=== PATIENT | female | born 1955 | race Caucasian/White ===

== ENCOUNTER 2017-07-09 11:30 | Emergency (ER) | payer BC | END 2017-07-09 13:07 | disposition home or self-care (01) | LOC: ERS 11:30 | DX: K11.20 Sialoadenitis, unspecified (principal); E78.5 Hyperlipidemia, unspecified; M06.9 Rheumatoid arthritis, unspecified; G40.909 Epilepsy, unspecified, not intractable, without status epilepticus; M32.9 Systemic lupus erythematosus, unspecified; Z79.899 Other long term (current) drug therapy | CPT/HCPCS: 99283 ==

== ENCOUNTER 2017-07-12 14:20 | Emergency (ER) | payer BC ==
[2017-07-12] MEDS ORDERED: Ondansetron ODT 4 MG TAB ONE (14:27)
== END 2017-07-12 15:30 | disposition left against medical advice (07) ==
LOC: ERS 14:20
DX: Z53.21 Procedure and treatment not carried out due to patient leaving prior to being seen by health care provider (principal)
CPT/HCPCS: 93005; Q0162

== ENCOUNTER 2017-12-08 14:48 | Outpatient (CLI) | payer BC ==
[~2017-12-08 14:48] MED LIST: ISOVUE-370 76%-LOCM 1 ML ONE
--- NOTE | 2017-12-08 16:18 | CT ---
HEAD CT WITH AND WITHOUT CONTRAST: 12/08/17 HISTORY: Memory loss. Evaluate for intracranial metastases. Stage IV breast cancer. COMPARISON: None. TECHNIQUE: Pre and postcontrast head CT is performed in the axial plane. FINDINGS: Noncontrast head CT: No parenchymal hemorrhage. No extra-axial hematoma. No midline shift. Basilar cisterns are patent. Br ain volume, age appropriate. Cortical carney-white matter differentiation is preserved. Ventricles and sulci are patent and symmetric. Note is made of a partially empty sella. No pathologic enhancement of the brain parenchyma. Adequate aeration of the sinuses and mastoid air cells. Calvarium is intact. IMPRESSION: No pathologic enhancement of the brain parenchyma. No CT evidence of intracranial metastases. POS: BINTA
== END 2017-12-08 14:49 | disposition home or self-care (01) ==
LOC: CT 14:48
PROVIDERS: ATTEND Internal Medicine Medical Oncology
DX: C50.112 Malignant neoplasm of central portion of left female breast (principal); C79.51 Secondary malignant neoplasm of bone
CPT/HCPCS: 70470; 82565

== ENCOUNTER 2018-11-28 10:17 | Outpatient (CLI) | payer BC ==
--- NOTE | 2018-11-28 11:22 | MMO ---
Bilateral MAMMO Bilat Diag [facility]TYESHA. CLINICAL HISTORY: Patient is 63 years old and is seen for diagnostic exam and lump or thickening in the left breast. The patient has the following family history of breast cancer: maternal aunt. The patient has a history of metastatic left breast carcinoma at age 61; Core Biopsy procedure revealed invasive ductal left breast carcinoma in December, and Core Biopsy procedure revealed invasive ductal left breast carcinoma in December,. The patient has a history of left Ultrasound Guided Core Biopsy in November, - malignant and left Ultrasound Guided Core Biopsy at age 61 - malignant. VIEWS: The views performed were: bilateral craniocaudal with tomosynthesis; bilateral mediolateral oblique with tomosynthesis; and bilateral mediolateral with tomosynthesis. FILMS COMPARED: The present examination has been compared to prior imaging studies performed at [facility] on 12/10/2015 and 01/01/2016, and at [facility] on 11/04/2013. MAMMOGRAM FINDINGS: There are scattered fibroglandular densities. Finding 1: There are two new biopsy clips seen in the central region of the left breast. Finding 2: There is an area of architectural distortion seen in the central region of the left breast. In the right breast, there are no suspicious masses, calcifications or areas of architectural distortion. IMPRESSION: FINDING 1: NEW BIOPSY CLIPS IN THE LEFT BREAST ARE CONFIRMED UTILIZING POST PROCEDURE MAMMOGRAM. FINDING 2: AREA OF ARCHITECTURAL DISTORTION IN THE LEFT BREAST IS A KNOWN MALIGNANCY. THE RESULTS OF THIS EXAM WERE SENT TO THE PATIENT. MAMMOGRAPHY NOTE: 1. A negative mammogram report should not delay a biopsy if a dominant of clinically suspicious mass is present. 2. Approximately 10% to 15% of breast cancers are not detected by mammography. 3. Adenosis and dense breasts may obscure an underlying neoplasm. Reported by: MARIA M TOMLIN MD Electonically Signed: [id number]
== END 2018-11-28 10:18 | disposition home or self-care (01) ==
LOC: BICMAMMO 10:17
PROVIDERS: ATTEND Specialist
DX: N63.20 Unspecified lump in the left breast, unspecified quadrant (principal); Z80.3 Family history of malignant neoplasm of breast; Z85.3 Personal history of malignant neoplasm of breast; Z98.890 Other specified postprocedural states
CPT/HCPCS: 77066; G0279

== ENCOUNTER 2018-12-07 09:29 | Outpatient (CLI) | payer BC ==
[2018-12-07] MEDS ORDERED: Iopamidol 370 76% 100 ML VIAL ONE (11:04)
--- NOTE | 2018-12-07 11:32 | CT ---
CT OF THE CHEST, ABDOMEN AND PELVIS WITH IV CONTRAST INDICATION: History of metastatic breast disease COMPARISON: CT of the chest, abdomen and pelvis dated August 04, 2016 FINDINGS: CHEST: Lungs:No suspicious pulmonary nodules. Heart and great vessels:Right subclavian chest wall port. Pleural space: No pneumothorax or effusion. Additional findings: There is a new 2.5 cm mass within the inner aspect the left breast with associa kiran biopsy clip. There are 2 small ossific clips within the central left breast. There are stable nonpathologically enlarged lymph nodes within the left and right axilla. ABDOMEN: Liver:Stable hepatic cysts and fatty liver Spleen:Normal appearing. Pancreas:Normal appearing. Adrenal Glands:Normal appearing. Kidneys:Normal appearing. Aorta:Normal appearing. Additional findings: Cholecystectomy Pelvis: Bowel:Normal appearing. Bladder:Decompressed Reproductive structures:Surgically absent Rectum and perirectal soft tissues:Normal appearing. Additional findings: No free fluid or free air. Osseous structures: Stable scattered osteoblastic metastatic disease. No pathologic fractures identified. There is scattered degenerative and osteoarthritic changes. IMPRESSION: 1. New left breast mass with biopsy clip. Recommend correlation with patient's pathological cells. Fi ndings are suspicious for recurrent left breast cancer. 2. Stable osteoblastic metastatic disease. 3. No evidence of intrathoracic or intra-abdominal metastatic disease.
--- NOTE | 2018-12-07 15:43 | NM ---
WHOLE BODY BONE SCAN: 12/07/18 HISTORY: Malignant neoplasm of central portion of the left female breast. RADIOPHARMACEUTICAL: 30 millicuries technetium 99m-MDP injected intravenously. COMPARISON: Bone scan dated 10/24/16. CORRELATION: CT chest, abdomen and pelvis of today. FINDINGS: There is decreased intensity of uptake in the regions of previously noted abnormalities in the sternu m, ribs, right lesser trochanter and inferior aspect of the left SI region. Increased uptake in the shoulders, elbows, wrist, hands, knees, ankles and feet, consistent with dege nerative changes are redemonstrated. Tracer excretion through the kidneys is within normal limits. IMPRESSION: Interval improvement in the osseous metastatic disease since 11/24/16. POS: BINTA
== END 2018-12-07 09:30 | disposition home or self-care (01) ==
LOC: CT 09:29
PROVIDERS: ATTEND Internal Medicine Hematology & Oncology
DX: C50.112 Malignant neoplasm of central portion of left female breast (principal); C79.51 Secondary malignant neoplasm of bone; N63.20 Unspecified lump in the left breast, unspecified quadrant
CPT/HCPCS: 71260; 74177; 78306; A9503; Q9967

== ENCOUNTER 2018-12-28 13:48 | Outpatient (CLI) | payer BC ==
[2018-12-28 15:42] LABS: #Eosinphils 0.1 thou/uL (0.0-0.7); #Lymphocytes 1.5 thou/uL (1.20-3.40); #Monocytes 0.5 thou/uL (0.11-0.59); #Neutrophils 2.9 thou/uL (1.40-6.50); %Basophils 0.5 % (0.0-1.0); %Eosinophils 2.2 % (0.0-10.0); %Lymphocytes 29.9 % (21.0-51.0); %Monocytes 10.2 % (0.0-10.0); %Neutrophils 57.2 % (42.0-75.0); Hemoglobin 12.8 g/dL (12.0-16.0); Mean Corpuscular HGB CONC 34.3 g/dL (32.0-36.0); Mean Corpuscular Volume 84.6 fL (78.0-98.0); Mean Platelet Volume 7.9 fL (7.4-10.4); Platelet Count 240 thou/uL (130-400); RBC Distribution Width 12.1 % (11.5-14.5); Red Blood Cell (RBC) Count 4.41 mill/uL (4.20-5.40); White Blood Cell (WBC) Count 5.1 thou/uL (4.8-10.8)
[2018-12-28 15:57] LABS: Anion Gap 14 mmol/L (10-20); BUN (Urea Nitrogen) 15 mg/dL (9.8-20.1); Calc. Creatinine Clearance 0 mL/min (70-130); Calcium 9.3 mg/dL (7.8-10.44); Carbon Dioxide 27 mmol/L (23-31); Chloride 102 mmol/L (98-107); Estimated GFR-MDRD 59; Glucose 72 mg/dL (80-115); Potassium 4.1 mmol/L (3.5-5.1); Sodium 139 mmol/L (136-145)
--- NOTE | 2018-12-28 17:04 | EKG ---
Test Reason : Blood Pressure : / mmHG Vent. Rate : 075 BPM Atrial Rate : 075 BPM P-R Int : 206 ms QRS Dur : 084 ms QT Int : 400 ms P-R-T Axes : 051 037 046 degrees QTc Int : 446 ms Normal sinus rhythm Low voltage QRS When compared with ECG of 12-JUL-2017 14:26, (Unconfirmed) Premature ventricular complexes are no longer Present Criteria for Septal infarct are no longer Present Confirmed by DR. Alyx BAILEY ([id number]) on 12/28/2018 5:03:47 PM Referred By: JOB Confirmed By:DR. Alyx BAILEY
== END 2018-12-28 13:49 | disposition home or self-care (01) ==
LOC: LABBT 13:48
PROVIDERS: ATTEND Specialist
DX: Z01.818 Encounter for other preprocedural examination (principal); C50.912 Malignant neoplasm of unspecified site of left female breast; Z17.0 Estrogen receptor positive status [ER+]
CPT/HCPCS: 80048; 85025; 93005; 93010

== ENCOUNTER 2019-01-01 07:32 | Observation (INO) | payer BC ==
[2019-01-01] MEDS ORDERED: Famotidine/PF 20 mg/2ml Vial ONE (12:03)
[2019-01-01] MEDS ORDERED: Fentanyl 100 MCG/2 ML VIAL ONE ×2 (12:03→15:11)
[2019-01-01] MEDS ORDERED: Levofloxacin 500 mg/D5W 100 ml Premix Bag ONE (12:03)
--- NOTE | 2019-01-01 12:03 | NM ---
Lymphoscintigraphy left breast HISTORY: Left breast cancer. FINDINGS: After explaining the procedure and answering all questions, the anterior aspect of left mayelin ast was carefully cleansed. A total volume of 1 cc liquid containing a total of 398 uCi technetium 99m filtered sulfur colloid wa s carefully injected in 4 equal aliquots intradermally at the 12:00, 3:00, 6:00, and 9:00 periareolar positions of the left breast. Injection site was massaged by the patient to diffuse the l iquid. Imaging was performed. Imaging carried out to 3 hours. No uptake of radiotracer was seen within the axilla or along the inte rnal mammary chain. Patient tolerated the procedure well and was transferred to day surgery in good condition. IMPRESSION: Nonvisualization of sentinel lymph node left breast.
[2019-01-01] MEDS ORDERED: Isosulfan Blue 50 MG/5 ML VIAL ONE (12:10)
[2019-01-01] MEDS ORDERED: Bupivacaine/Epinephrine 0.25% 30 ML VIAL ONE (12:10)
[2019-01-01] MEDS ORDERED: Ketorolac Tromethamine 30 MG/ML VIAL ONE (12:20)
[2019-01-01] MEDS ORDERED: Promethazine HCl 25 MG/ML VIAL ONE (15:04)
[2019-01-01] MEDS ORDERED: Promethazine 25 MG TAB PO PRN (15:53)
[2019-01-01] MEDS ORDERED: Promethazine HCl 25 MG/ML VIAL IM PRN (15:53)
[2019-01-01] MEDS ORDERED: hydrALAZINE 20 MG/ML VIAL SLOW IVP PRN (15:53)
[2019-01-01] MEDS ORDERED: Ondansetron PF 4 MG/2 ML Vial IVP PRN (15:53)
[2019-01-01] MEDS ORDERED: HYDROcodone/Acetaminophen 7.5/325 mg Tablet PO PRN ×2 (15:53)
[2019-01-01] MEDS ORDERED: Dextrose 5% in Water 1,000 ML IV PRN (15:53)
[2019-01-01] MEDS ORDERED: CEVIMELINE HCL PO SCH (15:53)
[2019-01-01] MEDS ORDERED: Dextrose 50% Abboject 50 ML SYRINGE SLOW IVP PRN (15:53)
[2019-01-01] MEDS ORDERED: Morphine 4 MG/ML VIAL SLOW IVP PRN (15:53)
[2019-01-01] MEDS ORDERED: PROPOFOL 200 MG/20 ML VIAL ONE (16:29)
[2019-01-01] MEDS ORDERED: Rocuronium Bromide 10 MG/ML (10ML VIAL) ONE (16:29)
[2019-01-01] MEDS ORDERED: Glycopyrrolate 0.2 MG/ML 5 ML SYRINGE ONE (16:29)
[2019-01-01] MEDS ORDERED: Dexamethasone 20 MG/5 ML VIAL ONE (16:29)
[2019-01-01] MEDS ORDERED: Succinylcholine Chloride 20 MG/ML 10 ml SYRINGE FS ONE (16:29)
[2019-01-01] MEDS ORDERED: Ondansetron PF 4 MG/2 ML Vial ONE (16:29)
[2019-01-01] MEDS ORDERED: Lidocaine 1% PF 5 ML VIAL ONE (16:29)
[2019-01-01] MEDS: D5 1/2 NS w/20 mEq KCL 1,000 ML IV SCH (17:30)
[2019-01-01] MEDS: Morphine 2 MG/ML SYRINGE SLOW IVP PRN ×2 (17:31→20:16)
[2019-01-01 17:45] VITALS: BMI 30.7
[2019-01-01] MEDS: levETIRAcetam 500 MG TAB PO SCH (20:12)
[2019-01-01] MEDS: Hydroxychloroquine Sulfate 200 MG TAB PO SCH (20:15)
[2019-01-01] MEDS ORDERED: Atorvastatin Calcium 10 MG TAB PO SCH (21:00)
[2019-01-01] MEDS ORDERED: Letrozole 2.5 MG TAB PO SCH (21:00)
[2019-01-01] MEDS: Famotidine 20 MG TAB PO SCH (21:47)
[2019-01-01] MEDS: Lacosamide 50 mg Tablet PO SCH (21:48)
[2019-01-02] MEDS ORDERED: oxyCODONE/Acetaminophen 5 mg/325 mg Tablet PO PRN (00:42)
[2019-01-02] MEDS: diphenhydrAMINE 25 MG CAP PO PRN ×2 (00:48→06:46)
[2019-01-02] MEDS: oxyCODONE/Acetaminophen 5 mg/325 mg Tablet PO PRN ×3 (00:49→08:51)
[2019-01-02 04:37] LABS: #Lymphocytes 1.1 thou/uL (1.20-3.40); #Monocytes 0.7 thou/uL (0.11-0.59); #Neutrophils 4.4 thou/uL (1.40-6.50); %Basophils 0.1 % (0.0-1.0); %Eosinophils 0.3 % (0.0-10.0); %Monocytes 10.9 % (0.0-10.0); %Neutrophils 70.7 % (42.0-75.0); Hemoglobin 10.8 g/dL (12.0-16.0); Mean Corpuscular Hemoglobin 28.9 pg (27.0-31.0); Mean Corpuscular Volume 85.2 fL (78.0-98.0); Mean Platelet Volume 7.2 fL (7.4-10.4); Platelet Count 215 thou/uL (130-400); RBC Distribution Width 11.9 % (11.5-14.5); Red Blood Cell (RBC) Count 3.72 mill/uL (4.20-5.40); White Blood Cell (WBC) Count 6.3 thou/uL (4.8-10.8)
[2019-01-02 07:53] VITALS: BP 108/59; TEMP 97.5
[2019-01-02] MEDS: levETIRAcetam 500 MG TAB PO SCH (08:54)
[2019-01-02] MEDS: Famotidine 20 MG TAB PO SCH (08:55)
[2019-01-02] MEDS: Hydroxychloroquine Sulfate 200 MG TAB PO SCH (08:56)
[2019-01-02] MEDS ORDERED: DULoxetine 60 MG CAP PO SCH (09:00)
[2019-01-02] MEDS ORDERED: Hydrochlorothiazide 25 MG TAB PO SCH (09:00)
[2019-01-02] MEDS: D5 1/2 NS w/20 mEq KCL 1,000 ML IV SCH (09:00)
[2019-01-02] MEDS ORDERED: Potassium Chloride 20 MEQ TAB PO SCH (09:00)
[2019-01-02] MEDS: Lacosamide 50 mg Tablet PO SCH (09:01)
--- NOTE | 2019-01-03 14:26 | OP ---
DATE OF PROCEDURE: 01/01/2019 PREOPERATIVE DIAGNOSIS: Metastatic left breast cancer. POSTOPERATIVE DIAGNOSIS: Metastatic left breast cancer. PROCEDURE PERFORMED: Left mastectomy with sentinel lymph node biopsy. ANESTHESIA: General endotracheal. INDICATIONS: The patient is a 63-year-old white female. She was diagnosed with multifocal left breast cancer a few years ago. She was found to have disease metastatic to bone and has been treated aggressively with chemotherapy since that time. The large palpable cancer within her breast and the large palpable lymphadenopathy seemed to resolve with chemotherapy. She recently has developed a new palpable mass at the lower inner left breast. This was biopsy proven to be malignant. After discussing all options with her oncologist, we have elected to proceed with a left mastectomy with a sentinel lymph node biopsy for prognostic indication as well as determination of further adjuvant therapy. Lymphoscintigraphy was performed before the surgery; however, this revealed no evidence of any radioactivity within the axilla or any sirena basin. She is taken to the operating at this time for this procedure. DESCRIPTION OF PROCEDURE: Informed consent was obtained. The patient was taken to the operating room, where general endotracheal anesthesia was obtained with the patient in supine position. Left breast, chest wall, axilla were prepped with ChloraPrep, draped in sterile fashion. 4 mL of isosulfan blue was infiltrated in the periareolar subdermal tissue and massaged for 5 minutes. The location of the malignancy at the far lower inner quadrant of her left breast led to a challenging mastectomy incision. An elliptical incision was created extending obliquely from below the xiphoid across the breast including the nipple-areolar complex and terminating at the axilla. The incision and all dissection were carried out using the PlasmaBlade. I began my dissection initially in the axilla. I elevated the skin flap off the underlying chest wall and axilla. There was; however, no radioactive material that was discerned within the axilla. I then returned my attention to the mastectomy. Flaps were raised superiorly, inferiorly, and medially. The malignancy in the lower inner quadrant was easily palpable and great effort was taken to create an appropriate margin around this malignancy. It was deep within this thin area of the breast. I therefore obtained a little bit of the pectoral muscle underlying this to ensure clean margins. The breast was elevated off the chest wall in a medial to lateral fashion extending towards the axilla. As I approached the axilla, although there was no radioactivity, I was able to discern blue lymphatics entering the axilla. I dissected along these and identified two blue-stained lymph nodes. These were each dissected circumferentially and submitted as sentinel lymph nodes for permanent section. I further evaluated the axilla and was able to palpate a couple of other enlarged lymph nodes. Without performing a true axillary dissection, I elevated some of the axillary lymphatics and incorporated them with the axillary tail of the breast. The specimen was removed from the patient and tagged with suture for orientation and then passed off the field. The wound was irrigated with sterile water. Meticulous hemostasis was then obtained with electrocautery. A #19 round fluted drain was obtained and brought out through the lateral inferior flap. Two drains were placed. One was placed up into the axilla and one across the chest wall. They were each secured with 3-0 nylon suture. The skin edges were then tailored to yield an appropriate skin closure. Dog-ear corrections were created medially and laterally. The mastectomy incision was then closed in layers using a running suture of 3-0 Vicryl to approximate the deep layer and skin obdulia to approximate the skin edges. A dressing was then placed of Xeroform gauze with fluffed gauze and a Lorna wrap. There were no complications. Blood loss was minimal. The patient tolerated the procedure well and was taken to recovery room in stable condition. Job ID: [id number]
== END 2019-01-02 12:15 | disposition home or self-care (01) ==
LOC: SDC 07:32 → ONC 14:43
PROVIDERS: ADMIT Specialist; ATTEND Specialist
PROC: 0HBU0ZZ Excision of Left Breast, Open Approach (ICD-10-PCS; principal; 2019-01-01)
PROC: 07T60ZZ Resection of Left Axillary Lymphatic, Open Approach (ICD-10-PCS; 2019-01-01)
DX: C50.312 Malignant neoplasm of lower-inner quadrant of left female breast (principal); C50.812 Malignant neoplasm of overlapping sites of left female breast; C77.3 Secondary and unspecified malignant neoplasm of axilla and upper limb lymph nodes; G40.909 Epilepsy, unspecified, not intractable, without status epilepticus; M32.9 Systemic lupus erythematosus, unspecified; F17.200 Nicotine dependence, unspecified, uncomplicated; Z17.0 Estrogen receptor positive status [ER+]; Z79.899 Other long term (current) drug therapy; Z88.0 Allergy status to penicillin; Z88.2 Allergy status to sulfonamides; Z91.040 Latex allergy status; Z91.013 Allergy to seafood
CPT/HCPCS: 36415; 78195; 85025; 88307; 88309; 88342; 96361; 96374; 96376; A9541; G0378; J0131; J1885; J1956; J2270; J2550; J3010; Q0163; Q9968; S0028

== ENCOUNTER 2019-01-15 12:48 | Outpatient (CLI) | payer BC ==
--- NOTE | 2019-01-16 08:42 | PET ---
PET CT SKULL TO MID THIGH: HISTORY: Malignant neoplasm of central portion left breast COMPARISON: Reference is made to chest, abdomen and pelvis CT from 12/07/2018. No prior PET imaging is available . TECHNIQUE: A PET-CT was performed from the skull to the mid thigh after administration of 11.8 millicuries of F1 8 FDG. Evaluation was performed on an [employer] workstation. FINDINGS: NECK: No areas of hypermetabolic activity. CHEST: Mild increased activity at the postoperative left anterior chest wall likely related to surgic al change from prior mastectomy. There are mildly prominent left axillary lymph nodes which are not hypermetabolic. ABDOMEN/PELVIS: No areas of hypermetabolic activity SKELETON: There are scattered foci of hypermetabolic activity of the spine, notably the thoracic and lumbar spine. Mild hypermetabolic activity is associated with these findings, measuring up to approximately 3.8 maximum SUV at the L1 level. Mild increased activity of the bilateral acromioclavicular joints is also present. SUV of the right A C joint is 3 and of the left AC joint is 2.2. CT images used for attenuation correction show multiple blastic lesions throughout the osseous struct ures. IMPRESSION: Evidence of osseous metastatic disease. Transcribed Date/Time: 01/16/2019 8:57 AM
== END 2019-01-15 12:49 | disposition home or self-care (01) ==
LOC: PET 12:48
PROVIDERS: ATTEND Internal Medicine Hematology & Oncology
DX: C50.112 Malignant neoplasm of central portion of left female breast (principal); C79.51 Secondary malignant neoplasm of bone
CPT/HCPCS: 36415; 78815; 86300; A9552

== ENCOUNTER 2019-05-14 08:28 | Outpatient (CLI) | payer BC ==
--- NOTE | 2019-05-14 09:56 | CT ---
EXAM: CT of the chest with contrast CT of the abdomen and pelvis with contrast HISTORY: Breast cancer with bone metastases COMPARISON: 12/07/2018 TECHNIQUE: 1. Multiple contiguous axial images were obtained in a CT the chest with contrast. Coronal and sagitt al reformats were performed. 2. Multiple contiguous axial images were obtained and a CT of the abdomen and pelvis with contrast. O ral contrast was administered. Coronal and sagittal reformats were performed. FINDINGS: CT CHEST: HEART: Normal in size without focal cardiac abnormality MEDIASTINUM: No hilar or mediastinal lymphadenopathy. LUNGS: No focal infiltrates, nodules, or masses. PLEURAL SPACE: No pneumothorax or pleural effusion. CHEST WALL SOFT TISSUES: Status post left mastectomy. There is a Mediport with its tip in the superio r vena cava. CT ABDOMEN/PELVIS: ABDOMEN: LIVER: within normal limits. BILE DUCTS: Normal caliber. GALLBLADDER: Removed PANCREAS: within normal limits. SPLEEN: within normal limits. ADRENALS: within normal limits. KIDNEYS: within normal limits. PELVIS: REPRODUCTIVE ORGANS: Status post hysterectomy. URETERS: within normal limits. BLADDER: within normal limits. PERITONEUM: No ascites or free air, no fluid collection. BOWEL: Normal caliber. MESENTERY AND RETROPERITONEUM: No enlarged mesenteric or retroperitoneal lymph nodes. VESSELS: Atherosclerotic calcifications. ABDOMINAL WALL: within normal limits. OSSEOUS STRUCTURES: Diffuse stable sclerotic lesions in the spine, ribs, sternum, left shoulder, and bones of the pelvis are seen. IMPRESSION: 1. Interval changes of left mastectomy. 2. Stable sclerotic lesions in the bones may represent treated metastases or residual disease.
--- NOTE | 2019-05-14 12:54 | NM ---
WHOLE BODY BONE SCAN: HISTORY: Metastatic breast cancer RADIOPHARMACEUTICAL: 33 mCi technetium-99m MDP injected intravenously. COMPARISON: 12/07/2018 FINDINGS: There is increased uptake in the shoulders, sternoclavicular joints, elbows, hands, and feet consist ent with degenerative changes. The patient is a right knee prosthesis. No other abnormal areas of tracer localization seen in the skeleton to suggest metastatic disease. Tracer excretion through the kidneys is within normal limits. IMPRESSION: No scintigraphic evidence of osseous metastatic disease.
[2019-05-14] MEDS ORDERED: Iopamidol 370 76% 100 ML VIAL ONE (13:53)
== END 2019-05-14 08:29 | disposition home or self-care (01) ==
LOC: CT 08:28
PROVIDERS: ATTEND Internal Medicine Hematology & Oncology
DX: C79.51 Secondary malignant neoplasm of bone (principal); C50.112 Malignant neoplasm of central portion of left female breast; Z90.12 Acquired absence of left breast and nipple; M89.9 Disorder of bone, unspecified
CPT/HCPCS: 71260; 74177; 78306; 82565; A9503; Q9967

== ENCOUNTER 2019-09-17 08:18 | Outpatient (CLI) | payer MEDICARE ==
[2019-09-17] MEDS ORDERED: Iopamidol 370 76% 100 ML VIAL ONE (08:50)
--- NOTE | 2019-09-17 12:41 | NM ---
RADIONUCLEOTIDE BONE SCAN : HISTORY: Breast cancer. Restaging. COMPARISON: 05/14/2019. FINDINGS: Heterogeneously increased uptake at the shoulders, ankles, and feet with the appearance of degenerati ve changes. Uptake around the right knee surrounds a photopenic defect consistent with recent knee replacement surgery. Very subtle uptake at the inferior margin of the left sacroiliac joint is unchanged from prior exams. No new areas of abnormal uptake are apparent. IMPRESSION : Stable exam. Minimal residual metastatic bone activity. No new abnormalities. Transcribed Date/Time: 09/17/2019 1:16 PM
--- NOTE | 2019-09-17 13:15 | CT ---
EXAM: CHEST, ABDOMEN AND PELVIC CT SCAN WITH IV CONTRAST: 09/17/19 HISTORY: Breast cancer, stage IV with chemotherapy and radiation. COMPARISON: 05/14/19. FINDINGS: There is some developing patchy parenchymal changes in the left upper lobe evidence for some post irr adiation pneumonitis. No mediastinal mass or adenopathy. No pleural effusion or pericardial effusion. No evidence for axillary adenopathy. Stable small circumscribed low attenuation foci within the liver, evidence for cysts. Stable small hi atal hernia. Status post cholecystectomy without evidence for common duct dilatation. No evidence for adenopathy within the abdomen or pelvis. There are stable diffuse mostly sclerotic bone metastasis. IMPRESSION: 1. New patchy parenchymal changes in the left upper lobe evidence for post irradiation pneumonit is. 2. Stable sclerotic bone metastases. No evidence for new additional metastatic disease. POS: RRE
== END 2019-09-17 08:19 | disposition home or self-care (01) ==
LOC: CT 08:18
PROVIDERS: ATTEND Internal Medicine Hematology & Oncology
DX: C50.112 Malignant neoplasm of central portion of left female breast (principal); C79.51 Secondary malignant neoplasm of bone
CPT/HCPCS: 71260; 74177; 78306; 80053; 82248; 82565; 83615; 84100; 84550; 85025; 86300; A9503; Q9967